=== PATIENT | male | born 1950 | race Caucasian/White ===

== ENCOUNTER → 2020-08-16 07:50 | Outpatient (BNVA) | payer MEDICARE, SELFPAY | PROVIDERS: PCP Physician Assistant Medical; Referring Provider Physician Assistant Medical; Visit Provider Internal Medicine | DX: Z13.89 Encounter for screening for other disorder (principal) | CPT/HCPCS: Q3014 ==

== ENCOUNTER 2020-10-07 08:47 | Outpatient (REF) | payer MEDICARE, SELFPAY ==
[2020-10-07 10:14] LABS: Free T4 (Free Thyroxine) 0.98 ng/dL (0.71-1.85); Thyroid Stimulating Hormone 0.66 uIU/mL (0.32-4.0)
[2020-10-08 10:36] LABS: Follicle Stimulating Hormone 9.7 mIU/mL (1.6-8.0)
[2020-10-09 18:12] LABS: Sex Hormone Binding Globulin 30 nmol/L (22-77)
[2020-10-09 23:18] LABS: Adrenocorticotropic Hormone 33 pg/mL (6-50)
[2020-10-13 15:48] LABS: Testosterone, Total 261 ng/dL (250-1100)
== END 2020-10-07 08:48 | disposition home or self-care (01) ==
LOC: HO.LAB 08:47
PROVIDERS: Visit Provider Internal Medicine
DX: E11.65 Type 2 diabetes mellitus with hyperglycemia (principal)
CPT/HCPCS: 36415; 82024; 82533; 83001; 83002; 84270; 84402; 84403; 84439; 84443

== ENCOUNTER → 2021-01-17 08:52 | Outpatient (BNVA) | payer MEDICARE, SELFPAY | PROVIDERS: PCP Physician Assistant Medical; Visit Provider Internal Medicine | CPT/HCPCS: Q3014 ==